=== PATIENT | female | born 1955 | race Caucasian/White ===

== ENCOUNTER 2020-06-06 10:27 | Emergency (ER) | payer OTHER ==
[2020-06-06 11:03] LABS: HEMOGLOBIN 13.5 gm/dl (12.3-15.3); RED BLOOD COUNT 4.49 M/UL (4.00-5.10); WHITE BLOOD COUNT 6.8 K/UL (4.5-11.0)
[2020-06-06 11:40] LABS: BUN/CREATININE RATIO 19 (0-10)
[2020-06-06] MEDS ORDERED: ZOFRAN ODT 4 MG4 MG PO (14:50)
[2020-06-06] MEDS ORDERED: ANTIVERT 12.512.5 MG PO (14:50)
== END 2020-06-06 15:06 | disposition home or self-care (01) ==
LOC: ER1 10:27
PROVIDERS: Family Medicine
DX: R11.2 Nausea with vomiting, unspecified (principal); H81.399 Other peripheral vertigo, unspecified ear; I10 Essential (primary) hypertension; Z88.1 Allergy status to other antibiotic agents; Z88.8 Allergy status to other drugs, medicaments and biological substances; Z90.710 Acquired absence of both cervix and uterus; F17.210 Nicotine dependence, cigarettes, uncomplicated
CPT/HCPCS: 80053; 82550; 82553; 83874; 84439; 84443; 84484; 85025; 93005; 96374; 99284; J2405

== ENCOUNTER → 2021-06-10 | Outpatient (CLI) | payer OTHER, MEDICARE ==
[~2021-06-10] MED LIST: ANTIVERT 12.512.5 MG PO; ZOFRAN ODT 4 MG4 MG PO
== END ==
LOC: KOH-I 15:25
DX: M79.604 Pain in right leg (principal); M79.89 Other specified soft tissue disorders
CPT/HCPCS: 93971

== ENCOUNTER → 2021-07-14 | Outpatient (CLI) | payer OTHER | LOC: KOH-I 11:35 | DX: M79.671 Pain in right foot (principal); Z68.24 Body mass index [BMI] 24.0-24.9, adult; M79.89 Other specified soft tissue disorders | CPT/HCPCS: 73610; 73630 ==

== ENCOUNTER → 2021-07-16 | Outpatient (CLI) | payer OTHER | LOC: KOH-I 14:52 | DX: M79.604 Pain in right leg (principal); M79.671 Pain in right foot; M79.89 Other specified soft tissue disorders | CPT/HCPCS: 73718 ==